=== PATIENT | male | born 1995 | race Caucasian/White ===

== ENCOUNTER 2018-02-06 23:00 | Emergency (ER) | payer SELFPAY ==
[~2018-02-06] VITALS: Ht 177.8 cm; Wt 65.8 kg
[2018-02-06 23:49] VITALS: BP 153/75
[2018-02-06 23:55] VITALS: BP 141/76
--- NOTE | 2018-02-07 00:14 | Emergency Room Report ---
History of Present Illness General Chief Complaint: Overdose Source: Patient Present Illness HPI 23-year-old male no significant past medical history presenting with consumption of accidentally taking 8 Aleve pills, 200 mg each. Also states that he drinks some wine today. He is currently clinically sober, states that he took the pills about 2 hours ago, denying any abdominal pain nausea or vomiting, no black or bloody stools. States that he feels fine but he just wanted to come in to make sure Allergies: Coded Allergies: No Known Allergies (Unverified , 02/06/18) Patient History Past Medical History: see triage record Past Surgical History: none Pertinent Family History: none Reviewed Nursing Documentation: PMH: Agreed; PSxH: Agreed Nursing Documentation-PMH Past Medical History: No Stated History History Of Psychiatric Problem: Yes - anxiety Review of Systems All Other Systems: negative except mentioned in HPI Physical Exam Vital Signs Date Time Temp Pulse Resp B/P (MAP) Pulse Ox O2 Delivery O2 Flow Rate FiO2 02/06/18 23:04 99.0 145 20 153/75 97 Room Air 99.0 Sp02 EP Interpretation: reviewed, normal General Appearance: alert, GCS 15, non-toxic, other - ANXIOUS Head: normocephalic, atraumatic Eyes: bilateral eye normal inspection, bilateral eye PERRL, bilateral eye EOMI ENT: normal ENT inspection, normal pharynx, normal voice, moist mucus membranes Neck: normal inspection, full range of motion, supple Respiratory: normal inspection, lungs clear, normal breath sounds, no respiratory distress, no retraction, no wheezing, speaking full sentences, chest symmetrical Cardiovascular #1: tachycardia Cardiovascular #2: 2+ radial (R), 2+ radial (L) Gastrointestinal: normal inspection, non tender, soft, non-distended, no guarding Genitourinary: no CVA tenderness Musculoskeletal: normal inspection, back normal, normal range of motion, non- tender Neurologic: normal inspection, alert, oriented x3, responsive, motor strength/ tone normal, sensory intact, normal gait, speech normal Psychiatric: normal inspection, judgement/insight normal, memory normal Skin: normal inspection, normal color, no rash, warm/dry, well hydrated, normal turgor Medical Decision Making Diagnostic Impression: Primary Impression: NSAID overdose ER Course 23-year-old male with consumption of 8 Aleve, and some wine DDX: Patient did not take toxic dose of NSAIDs, there is no suspicion for suicidal ideation, he denies any suicidal or homicidal thoughts. He is clinically sober Plan: I offered to do labs and observe patient however patient stating that he wants to go home, states that he feels fine but he just wanted to make sure that the dose that he ingested was not toxic ER course: Patient initially anxious with a heart rate of 120s, however calmed down to heart rate of 90 No nausea vomiting during ED stay, repeat abdominal exam is nontender I gave very strict return precautions to the patient, patient will be taking a taxi home with his roommates. I told him to come back to the emergency room if he is experiencing abdominal pain, intractable nausea vomiting, black or bloody stools He verbalized agreement, he is aclinially sober Disposition: Patient is to be discharged to home. Patient is instructed to follow up with their primary care doctor within 5 days. Please note that this Emergency Department Report was dictated using [employer] technology software, occasionally this can lead to erroneous entry secondary to interpretation by the dictation equipment EKG Diagnostic Results EP Interpretation: Yes Rate: 122 Rhythm: NSR ST Segments: No acute changes ASA given to patient: No Last Vital Signs Date Time Temp Pulse Resp B/P (MAP) Pulse Ox O2 Delivery O2 Flow Rate FiO2 02/06/18 23:55 97.9 102 20 141/76 98 Room Air 97.9 Disposition: HOME, SELF-CARE Condition: Improved Patient Instructions: Drug Overdose Additional Instructions: PLEASE RETURN TO THE EMERGENCY ROOM: If you are experiencing severe abdominal pain, nausea, vomiting, inability to eat or drink, black or bloody stools Faustino Simms M.D. Feb 07, 2018 00:14
== END 2018-02-06 23:50 | disposition home or self-care (01) ==
LOC: EMR 23:15
DX: T39.311A Poisoning by propionic acid derivatives, accidental (unintentional), initial encounter (principal); F41.9 Anxiety disorder, unspecified
CPT/HCPCS: 93005; 99283